=== PATIENT | male | born 1930 | race Caucasian/White ===

== ENCOUNTER 2017-11-30 14:38 | Emergency (ER) | END 2017-11-30 20:26 | disposition home or self-care (01) ==

== ENCOUNTER 2018-09-24 18:08 | Emergency (ER) | payer MEDICARE, OTHER ==
[~2018-09-24] VITALS: Wt 68.6 kg
[~2018-09-24 18:08] MED LIST: AMLO-147 PO; HYDR-4011 PO; METH500T PO; METH750T93 PO; NAPR-685 PO; NAPR-688 PO
[2018-09-24] MEDS ORDERED: SOD CHLORIDE 0.9% 500 ML IV STA (20:31)
--- NOTE | 2018-09-24 20:37 | ERD ---
ER Documentation Chief Complaint Chief Complaint bloody stool x3mo, denies symptoms. HPI This is an 88-year-old man who complains of bloody stool for 3 months. He states that when he has a bowel movement he has bright red blood on the toilet paper and sometimes has blood dripping in the toilet sometimes has blood streaks on the side of his stool or mixed in. He never has abdominal pain or painful bowel movements. No weight loss. No dizziness fatigue near syncope. The daughter is here and says that the patient is very stoic and does not complain of anything, therefore he has not told anyone about this GI bleeding. He says it was initially sporadic but now has become almost daily. It happens once a day ROS All systems reviewed and are negative except as per history of present illness. Medications Home Meds Reported Medications Docusate Sodium* (Colace*) 250 Mg Capsule, 250 MG PO BID, #60 CAP 09/24/18 Pregabalin* (Lyrica*) 50 Mg Capsule, 50 MG PO BID, CAP 09/24/18 Solifenacin* (Vesicare*) 10 Mg Tablet, 10 MG PO DAILY, TAB 09/24/18 Nebivolol Hcl* (Bystolic*) 10 Mg Tablet, 10 MG PO DAILY, #30 TAB 09/24/18 Tamsulosin Hcl* (Tamsulosin Hcl*) 0.4 Mg Cap.er.24h, 0.4 MG PO HS, CAP 09/24/18 Trazodone Hcl* (Trazodone Hcl*) 100 Mg Tablet, 100 MG PO QHS, #30 TAB 09/24/18 Tramadol Hcl* (Ultram*) 50 Mg Tablet, 50 MG PO BID PRN for PAIN, TAB 09/24/18 Bupropion Hcl* (Bupropion XL*) 150 Mg Tab.er.24h, 150 MG PO DAILY, TAB.SA 09/24/18 Rosuvastatin Calcium* (Crestor*) 5 Mg Tablet, 5 MG PO QHS, #30 TAB 09/24/18 Aspirin* (Aspirin* EC) 81 Mg Tablet.dr, 81 MG PO DAILY, TAB 09/24/18 Dutasteride* (Avodart*) 0.5 Mg Capsule, 0.5 MG PO DAILY, CAP 09/24/18 Olmesartan Medoxomil (Benicar) 40 Mg Tablet, 40 MG PO DAILY, #30 TAB 09/24/18 Hydralazine Hcl* (Hydralazine Hcl*) 25 Mg Tab, 25 MG PO TID, #60 TAB 09/24/18 Nifedipine* (Afeditab CR*) 60 Mg Tablet.er, 60 MG PO DAILY, #30 TAB.SA 09/24/18 Discontinued Scripts Methocarbamol* (Robaxin*) 750 Mg Tablet, 750 MG PO Q6H PRN for MUSCLE SPASMS, #20 TAB Prov:RON SARAVIA DO 11/30/17 Naproxen* (Naproxen*) 500 Mg Tablet, 500 MG PO BID PRN for PAIN, #14 TAB Prov:RON SARAVIA DO 11/30/17 Hydrocodone/Acetaminophen (Brickeys 5-325 Tablet) 1 Each Tablet, 1 EACH PO Q6 for SEVERE PAIN LEVEL 7-10, #7 TAB Prov:RON SARAVIA DO 11/30/17 Amlodipine Besylate* (Amlodipine Besylate*) 10 Mg Tablet, 10 MG PO DAILY, #30 TAB Prov:RON SARAVIA DO 11/30/17 Methocarbamol* (Robaxin*) 500 Mg Tab, 500 MG PO Q8 PRN for MUSCLE SPASMS, #14 TAB Prov:RON SARAVIA DO 04/20/15 Naproxen* (Naproxen*) 375 Mg Tablet, 375 MG PO BID PRN for PAIN, #20 TAB Prov:RON SARAVIA DO 04/20/15 Allergies Allergies: Coded Allergies: No Known Allergy (Unverified , 09/24/18) PMhx/Soc History of Surgery: Yes (abdominal hernia repair, skin CA removal) Anesthesia Reaction: No Hx Neurological Disorder: No Hx Respiratory Disorders: No Hx Cardiac Disorders: Yes (HTN, HYPERLIPIDEMIA) Hx Psychiatric Problems: No Hx Miscellaneous Medical Probl: Yes (back pain, prostate) Hx Alcohol Use: Yes (occasionally) Hx Substance Use: No Hx Tobacco Use: No Smoking Status: Never smoker FmHx Family History: No coronary disease Physical Exam Vitals Vital Signs Date Temp Pulse Resp B/P (MAP) Pulse Ox O2 O2 Flow FiO2 Time Delivery Rate 09/24/18 76 24 164/72 95 Room Air 20:17 (102) 09/24/18 97.5 81 18 132/63 95 18:15 (86) Physical Exam Const: Well-developed, well-nourished Head: Atraumatic, normocephalic Eyes: Normal Conjunctiva, PERRLA, EOMI, normal sclera, no nystagmus ENT: Normal External Ears, Nose and Mouth, moist mucus membranes. Neck: Full range of motion. No meningismus, no lymphadenopathy. Resp: Clear to auscultation bilaterally, no wheezing, rhonchi, rales Cardio: Regular rate and rhythm, 2/6 systolic ejection murmurs, S1 S2 present Abd: Soft, non tender x 4, non distended. Normal bowel sounds, no guarding or rebound, no pulsitile abdominal masses or bruits Skin: No petechiae or rashes, no ecchymosis , no maculopapular rash Back: No midline or flank tenderness Ext: No cyanosis, or edema, FROM x 4, normal inspection, neurovascularly intact x 4 Neur: Awake and alert, STR 5/5 x 4, sensation intact x 4, no focal findings, cerebellum intact Psych: Normal Mood and Affect Result Diagram: 09/24/18201409/24/182014 Results 24 hrs Laboratory Tests Test 09/24/18 20:15 White Blood Count 7.3 10^3/ul Red Blood Count 4.46 10^6/ul Hemoglobin 12.3 g/dl Hematocrit 39.7 % Mean Corpuscular Volume 89.0 fl Mean Corpuscular Hemoglobin 27.6 pg Mean Corpuscular Hemoglobin Concent 31.0 g/dl Red Cell Distribution Width 13.3 % Platelet Count 161 10^3/UL Mean Platelet Volume 12.1 fl Immature Granulocytes % 0.600 % Neutrophils % 70.2 % Lymphocytes % 20.3 % Monocytes % 6.9 % Eosinophils % 1.4 % Basophils % 0.6 % Nucleated Red Blood Cells % 0.0 /100WBC Immature Granulocytes # 0.040 10^3/ul Neutrophils # 5.1 10^3/ul Lymphocytes # 1.5 10^3/ul Monocytes # 0.5 10^3/ul Eosinophils # 0.1 10^3/ul Basophils # 0.0 10^3/ul Nucleated Red Blood Cells # 0.0 10^3/ul Prothrombin Time 13.7 Sec Prothrombin Time Ratio 1.1 INR International Normalized Ratio 1.04 Activated Partial Thromboplast Time 36.0 Sec Sodium Level 139 mmol/L Potassium Level 4.6 mmol/L Chloride Level 101 mmol/L Carbon Dioxide Level 27 mmol/L Anion Gap 11 Blood Urea Nitrogen 24 mg/dl Creatinine 1.64 mg/dl Est Glomerular Filtrat Rate mL/min mL/min Glucose Level 118 mg/dl Calcium Level 9.7 mg/dl Total Bilirubin 0.2 mg/dl Direct Bilirubin 0.00 mg/dl Indirect Bilirubin 0.2 mg/dl Aspartate Amino Transf (AST/SGOT) 20 IU/L Alanine Aminotransferase (ALT/SGPT) 17 IU/L Alkaline Phosphatase 86 IU/L Total Protein 7.0 g/dl Albumin 4.2 g/dl Globulin 2.80 g/dl Albumin/Globulin Ratio 1.50 Current Medications Medications Dose Sig/John Start Time Status Last (Trade) Ordered Route PRN Stop Time Admin Dose Reason Admin Sodium 500 ml @ Q1H STAT 09/24/18 DC 09/24/18 Chloride 500 mls/hr IV 20:31 20:44 09/24/18 21:30 Procedures/MDM Ordering MD: TARIQ IRBY DO Location: E/R Room/Bed: PROCEDURE: CT Abdomen and Pelvis without contrast. CLINICAL INDICATION: Abdominal pain, blood in stool TECHNIQUE: CT scan of the abdomen and pelvis without contrast was performed on a multi-detector high-resolution CT scanner. The patient was scanned without IV contrast. Coronal and sagittal reformatted images were obtained from the axial source images. DICOM images are available. CTDI equals 9.84 mGy, and DLP equals 557.07 mGy-cm. One or more of the following dose reduction techniques were used: - Automated exposure control. - Adjustment of the mA and/or kV according to patient size. - Use of iterative reconstruction technique. COMPARISON: None. FINDINGS: Images of the abdominal organs demonstrate the liver is unremarkable in appearance. No gallstones are seen within the gallbladder. There is no intra or extrahepatic ductal dilatation. The pancreas and spleen are normal in appearance. 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 Within the right adrenal gland is a well-circumscribed hypodensity which measures 15 mm with Hounsfield units of 110. The kidneys are symmetric in appearance. No hydronephrosis is seen. There is an exophytic hyperdensity extending from the right posterior kidney measuring 12 mm. Within the left kidney there is a hypodensity is well as a smaller hyperdensity present. Imaged bowel loops demonstrate a few air-fluid levels in distension and some central small bowel loops with also stool material within the lower abdominal small bowel loops. There is scattered stool throughout the colon. The vessels are normal in appearance. No lymphadenopathy is seen. Images the bowel loops demonstrate no evidence of bowel wall thickening. There is distension with stool material within distal small bowel loops. The appendix is visualized and is normal. The bladder and reproductive organs are unremarkable. There are bilateral inguinal hernias containing fat only, slightly larger on the left. Osseous structures demonstrate a mild levocurvature of the lumbar spine with multilevel degenerative changes. There is bibasilar atelectasis. IMPRESSION: CT of the abdomen pelvis demonstrates a few air-fluid levels in distal small bowel loops with stool material with stool throughout the colon. Would clinically correlate for constipation. No wall thickening is seen. Exophytic hyperdensity extending from the right posterior kidney which likely represents a hemorrhagic cyst. Both hyper and hypodensities are seen within the left kidney also likely representing cysts. Small bilateral inguinal hernias containing fat only. Degenerative changes of the lumbar spine with a levocurvature. RPTAT:[facility] Physician Rell Date Time Electronically viewed and signed by Physician Rell on 09/24/2018 22:17 RL/ CC: TARIQ IRBY DO [id number] Patient's hemoglobin is 12.3 after months of this type of bleeding mentioned in the history. He likely has an internal hemorrhoid. Will treat accordingly and will send him to Dr. Aldana Patient feels much better at this time, and vital signs are normal, symptoms have improved. I did give strict instructions to return to the ED if symptoms continue or worsen, patient will otherwise follow-up with primary care physician. Patient understood instructions and agreed to plan. Disclaimer: Inadvertent spelling and grammatical errors are likely due to EHR/dictation software use and do not reflect on the overall quality of patient care. Also, please note that the electronic time recorded on this note does not necessarily reflect the actual time of the patient encounter. Departure Diagnosis: Primary Impression: Lower GI bleed Additional Impression: Internal hemorrhoid Condition: Stable TARIQ IRBY DO Sep 24, 2018 20:37
[2018-09-24] MEDS ORDERED: NIFE60TA24 PO (21:21)
[2018-09-24] MEDS ORDERED: HYDR-3671 PO (21:21)
[2018-09-24] MEDS ORDERED: DUTA0.5C PO (21:22)
[2018-09-24] MEDS ORDERED: ASPI-817 PO (21:22)
[2018-09-24] MEDS ORDERED: OLME40TA13 PO (21:22)
[2018-09-24] MEDS ORDERED: CRES5 PO (21:23)
[2018-09-24] MEDS ORDERED: BUPR150T6 PO (21:23)
[2018-09-24] MEDS ORDERED: TRAM50TA PO (21:23)
[2018-09-24] MEDS ORDERED: NEBI10TA2 PO (21:24)
[2018-09-24] MEDS ORDERED: TAMS0.4C2 PO (21:24)
[2018-09-24] MEDS ORDERED: TRA100 PO (21:24)
[2018-09-24] MEDS ORDERED: DOCU250C58 PO (21:25)
[2018-09-24] MEDS ORDERED: PREG50CA PO (21:25)
[2018-09-24] MEDS ORDERED: SOLI10TA2 PO (21:25)
[2018-09-24] MEDS ORDERED: HYDR25SU23 PR (23:16)
[2018-09-24 23:21] VITALS: BP 146/81; PULSE 85; RESP 19
== END 2018-09-24 23:50 | disposition home or self-care (01) ==
LOC: E/R 18:08
DX: K92.2 Gastrointestinal hemorrhage, unspecified (principal); K64.8 Other hemorrhoids; I10 Essential (primary) hypertension; Z85.828 Personal history of other malignant neoplasm of skin; Z79.82 Long term (current) use of aspirin
CPT/HCPCS: 36415; 74176; 80053; 85025; 85610; 85730; 99285; J7040